=== PATIENT | female | born 1995 | race Caucasian/White ===

== ENCOUNTER 2020-12-13 08:13 | Emergency (ER) | payer OTHER ==
[~2020-12-13] VITALS: Ht 167.6 cm; Wt 63.7 kg
[2020-12-13] MEDS ORDERED: PRENTAB9 PO (08:28)
[2020-12-13 09:06] LABS: BASO % 0.3 % (0.0-1.0); EOS % 0.1 % (0.0-3.0); HEMATOCRIT 40.7 % (36.0-47.0); HEMOGLOBIN 13.2 g/dl (12.0-15.5); LYMPH # 1.7 10^3/uL (1.5-5.0); LYMPH % 24.5 % (24.0-44.0); MEAN CORPUSCULAR HEMOGLOBIN 26.9 pg (27.0-33.0); MEAN CORPUSCULAR HGB CONC 32.4 g/dl (32.0-36.5); MEAN CORPUSCULAR VOLUME 82.9 fl (80.0-96.0); MONO # 0.5 10^3/uL (0.0-0.8); MONO % 6.6 % (0.0-5.0); NEUTROPHILS # 4.8 10^3/uL (1.5-8.5); NEUTROPHILS % 68.2 % (36.0-66.0); PLATELET COUNT, AUTOMATED 202 10^3/uL (150-450); RED BLOOD COUNT 4.91 10^6/uL (4.00-5.40)
--- NOTE | 2020-12-13 09:46 | REP ---
INDICATION: , bleeding LMP 10/24/20 COMPARISON: None. TECHNIQUE: Transabdominal and transvaginal 1st trimester obstetrical ultrasound with color Doppler evaluation. FINDINGS: Retroverted uterus measures 8.9 x 4.0 x 5.9 cm. The endometrial complex measures 5 mm thickness. No decidual reaction or intrauterine identified. Maternal ovaries not visualized on either transabdominal or transvaginal images. No free fluid or adnexal mass lesion. IMPRESSION: No evidence for intrauterine . Differential diagnosis includes missed , early and less likely ectopic cannot be excluded. Correlation with serial HCG levels and repeat ultrasound as necessary. <Electronically signed by Pancho Dutta > 12/13/20 [id number]
[2020-12-13 10:04] VITALS: BP 119/66
== END 2020-12-13 10:05 | disposition home or self-care (01) ==
LOC: M ED 08:13
DX: O20.0 Threatened abortion (principal); Z3A.01 Less than 8 weeks gestation of pregnancy